=== PATIENT | male | born 1945 | race Caucasian/White ===

== ENCOUNTER 2019-09-03 13:53 | Emergency (ER) | payer OTHER, MEDICAID ==
[~2019-09-03] VITALS: Ht 188 cm; Wt 74.8 kg
[2019-09-03 14:00] VITALS: BP_SYST 110
[2019-09-03] MEDS ORDERED: NACL 0.9% 1,000 ML IV ONE (14:11)
[2019-09-03] MEDS ORDERED: ONDANSETRON HCL 4 MG/2 ML VIAL IVP ONE (14:15)
[2019-09-03] MEDS ORDERED: MORPHINE 4 MG/ML INJ. SYRINGE IVP ONE (14:15)
[2019-09-03] MEDS ORDERED: DILTIAZEM HCL 120 MG CAP.SR.24H PO ONE (14:45)
[2019-09-03 15:38] LABS: ANION GAP 10 (5-15); CHLORIDE 93 mmol/L (98-107); CREATININE 1.31 mg/dL (0.55-1.30); GLUCOSE 108 mg/dL (70-99); POTASSIUM 3.3 mmol/L (3.5-5.1); SODIUM SERUM 128 mmol/L (136-145); UREA NITROGEN, BLOOD 17 mg/dL (8-21)
[2019-09-03 15:40] LABS: INR 1.2 (0.80-1.20); PROTHROMBIN TIME 11.8 SECS (9.5-12.5)
[2019-09-03 15:42] LABS: ALANINE AMINOTRANSFERASE 20 U/L (12-78); ALBUMIN 3.7 g/dL (3.4-4.8); AMYLASE 30 U/L (0-100); ASPARTATE AMINOTRANSFERASE 23 U/L (10-37); LIPASE 125 U/L (73-393); TOTAL BILIRUBIN 0.7 mg/dL (0.0-1.0)
[2019-09-03 16:05] LABS: BASOPHILS # (AUTO) 0.1 K/uL (0.0-0.2); BASOPHILS % (AUTO) 0.7 % (0.0-2.0); EOSINOPHILS # (AUTO) 0.1 K/uL (0.0-0.4); EOSINOPHILS % (AUTO) 1.3 % (0.0-4.0); HEMATOCRIT 40.9 % (36-54); HEMOGLOBIN 13.7 g/dL (14.0-18.0); LYMPHOCYTES # (AUTO) 1.5 K/uL (1.0-5.5); LYMPHOCYTES % (AUTO) 21.1 % (20.5-51.5); MEAN CORPUSCULAR HEMOGLOBIN 34 pg (27-31); MEAN CORPUSCULAR HGB CONC 33 % (32-36); MEAN CORPUSCULAR VOLUME 100 fL (79.0-98.0); MONOCYTES # (AUTO) 0.9 K/uL (0.0-1.0); MONOCYTES % (AUTO) 12.4 % (1.7-9.3); NEUTROPHILS # (AUTO) 4.6 K/uL (1.8-7.7); NEUTROPHILS % (AUTO) 64.5 % (40.0-70.0); PLATELET COUNT (AUTO) 208 K/uL (130-430); RED BLOOD CELL COUNT(AUTO) 4.08 MIL/uL (4.2-6.2); RED CELL DISTRIBUTION WIDTH 15.1 % (9.0-15.0); WHITE BLOOD COUNT (AUTO) 7.2 K/uL (4.8-10.8)
[2019-09-03 16:14] LABS: BLOOD, URINE 3+ (NEGATIVE); COLOR,URINE YELLOW (YELLOW); GLUCOSE,URINE NEGATIVE (NEGATIVE); KETONES,URINE NEGATIVE (NEGATIVE); LEUKOCYTE ESTERASE ,URINE 3+ (NEGATIVE); NITRITE, URINE NEGATIVE (NEGATIVE); PROTEIN URINE 2+ (NEGATIVE)
[2019-09-03 16:23] LABS: BILIRUBIN,URINE NEGATIVE (NEGATIVE); CLARITY/URINE HAZY (CLEAR)
[2019-09-03 16:24] LABS: BACTERIA,URINE MODERATE /HPF (None Seen); MUCUS,URINE None Seen /LPF (None Seen); RBC,URINE 80-100 /HPF (0-3); WBC,URINE 50-80 /HPF (0-3)
[2019-09-03] MEDS ORDERED: LEVOFLOXACIN 500 MG/D5W 100 ML IV ONE (18:00)
[2019-09-03 22:40] VITALS: BP_SYST 129
[2019-09-03] MEDS ORDERED: POTASSIUM CHLORIDE 20 MEQ TAB.PRT.SR PO ONE (23:00)
== END 2019-09-03 22:40 | disposition home or self-care (01) ==
LOC: SED 13:53
DX: N30.91 Cystitis, unspecified with hematuria (principal); Z88.0 Allergy status to penicillin
CPT/HCPCS: 36415; 71045; 71047; 80053; 81000; 82150; 82550; 83605; 83690; 84484; 85025; 85610; 85730; 87040; 87086; 93005; 96365; 96375; 99285; J1956; J2270; J2405; J7030

== ENCOUNTER 2019-09-24 19:28 | Inpatient (IN) | payer OTHER, MEDICAID ==
[~2019-09-24] VITALS: Ht 188 cm; Wt 74.4 kg
[2019-09-24 19:38] VITALS: BP_SYST 121
--- NOTE | 2019-09-24 19:38 | NUR ---
Patient to ER bed 6 to gown for evaluation. Side rails up.
--- NOTE | 2019-09-24 19:46 | NUR ---
ER Dr. Arreola at bedside examining patient.
--- NOTE | 2019-09-24 19:53 | NUR ---
Patient BIB BLS for medical clearance prior to transfer to [facility] room 55B. Patient was wandering and trying to leave facility.
--- NOTE | 2019-09-24 20:40 | NUR ---
# 16 FR In and Out catheter with use of sterile technique. Immediate return of 300ml clear yellow urine noted. Urine sample collected and sent to lab. Pt tolerated procedure well
[2019-09-24 20:55] LABS: BILIRUBIN,URINE NEGATIVE (NEGATIVE); BLOOD, URINE NEGATIVE (NEGATIVE); CLARITY/URINE SL CLOUDY (CLEAR); COLOR,URINE YELLOW (YELLOW); GLUCOSE,URINE NEGATIVE (NEGATIVE); KETONES,URINE NEGATIVE (NEGATIVE); LEUKOCYTE ESTERASE ,URINE 2+ (NEGATIVE); NITRITE, URINE NEGATIVE (NEGATIVE); PROTEIN URINE NEGATIVE (NEGATIVE); UROBILINOGEN,URINE 0.2 (0.2-1.0)
[2019-09-24 20:56] LABS: BASOPHILS % (AUTO) 0.9 % (0.0-2.0); EOSINOPHILS # (AUTO) 0.1 K/uL (0.0-0.4); EOSINOPHILS % (AUTO) 2.6 % (0.0-4.0); HEMATOCRIT 33.3 % (36-54); HEMOGLOBIN 11.3 g/dL (14.0-18.0); LYMPHOCYTES # (AUTO) 1.4 K/uL (1.0-5.5); LYMPHOCYTES % (AUTO) 27.7 % (20.5-51.5); MEAN CORPUSCULAR HEMOGLOBIN 34 pg (27-31); MEAN CORPUSCULAR HGB CONC 34 % (32-36); MEAN CORPUSCULAR VOLUME 100 fL (79.0-98.0); MONOCYTES # (AUTO) 0.3 K/uL (0.0-1.0); NEUTROPHILS % (AUTO) 61.8 % (40.0-70.0); PLATELET COUNT (AUTO) 160 K/uL (130-430); RED BLOOD CELL COUNT(AUTO) 3.34 MIL/uL (4.2-6.2); RED CELL DISTRIBUTION WIDTH 14.5 % (9.0-15.0); WHITE BLOOD COUNT (AUTO) 4.9 K/uL (4.8-10.8)
[2019-09-24 20:59] LABS: BACTERIA,URINE MODERATE /HPF (None Seen); RBC,URINE 0-3 /HPF (0-3)
[2019-09-24 21:04] LABS: BARBITURATE, URINE NEGATIVE (NEG <=200); BENZODIAZEPINE, URINE NEGATIVE (NEG <=150); CANNABINOID, URINE NEGATIVE (NEG <=50); COCAINE, URINE NEGATIVE (NEG <=150); METHAMPHETAMINES SCREEN,URINE NEGATIVE (NEG <=500); OPIATE, URINE NEGATIVE (NEG <=100); PHENCYCLIDINE SCREEN,URINE NEGATIVE (NEG <=25); UR TRICYCLIC ANTIDEPRESSANTS POSITIVE (NEG <=300); URINE AMPHETAMINE NEGATIVE (NEG <=500); URINE METHADONE NEGATIVE (NEG <=200); URINE OXYCODONE SCREEN NEGATIVE (NEG <=100); URINE PROPOXYPHENE SCREEN NEGATIVE (NEG <=300)
[2019-09-24 21:10] LABS: ANION GAP 6 (5-15); CALCIUM 7.7 mg/dL (8.4-11.0); CHLORIDE 93 mmol/L (98-107); CREATININE 0.84 mg/dL (0.55-1.30); GLUCOSE 72 mg/dL (70-99); POTASSIUM 4.1 mmol/L (3.5-5.1); SODIUM SERUM 126 mmol/L (136-145); UREA NITROGEN, BLOOD 12 mg/dL (8-21)
[2019-09-24 21:11] LABS: INR 1.1 (0.80-1.20); PROTHROMBIN TIME 11.5 SECS (9.5-12.5)
[2019-09-24 21:16] LABS: ALANINE AMINOTRANSFERASE 27 U/L (12-78); ALBUMIN 2.8 g/dL (3.4-4.8); ASPARTATE AMINOTRANSFERASE 22 U/L (10-37); CHOLESTEROL 110 mg/dL (<200); HDL CHOLESTEROL 57 mg/dL (>45); LDL CHOLESTEROL 54 mg/dL (<100); TOTAL BILIRUBIN 0.4 mg/dL (0.0-1.0); TRIGLYCERIDES 26 mg/dL (30-150)
[2019-09-24 21:21] LABS: ACETAMINOPHEN < 1 ug/mL (1-30); ALCOHOL, BLOOD < 3 mg/dL (<10)
--- NOTE | 2019-09-24 21:37 | NUR ---
Arrived with POLST Patient's code status is full code paperwork completed and placed in chart.
[2019-09-24] MEDS ORDERED: ACET-73 PO (21:59)
[2019-09-24] MEDS ORDERED: NACL 0.9% 1,000 ML IV ONE (22:00)
[2019-09-24] MEDS ORDERED: ACET325C6 PO (22:11)
[2019-09-24] MEDS ORDERED: DOCU-144 PO ×2 (22:11)
[2019-09-24] MEDS ORDERED: FOLI-43 PO (22:11)
[2019-09-24] MEDS ORDERED: MOM PO (22:11)
[2019-09-24] MEDS ORDERED: FOLI100T PO (22:11)
[2019-09-24] MEDS ORDERED: MYL80 PO (22:11)
[2019-09-24] MEDS ORDERED: BISA-79 RC (22:11)
[2019-09-24] MEDS ORDERED: PRED5TAB PO (22:11)
[2019-09-24] MEDS ORDERED: METH2.5T PO (22:11)
[2019-09-24] MEDS ORDERED: SENN8.6T19 PO (22:11)
[2019-09-24] MEDS ORDERED: METO-442 PO (22:11)
[2019-09-24] MEDS ORDERED: QUET50TA PO (22:11)
[2019-09-24] MEDS ORDERED: APIX5TAB PO (22:11)
[2019-09-24] MEDS ORDERED: TRAZ-250 PO (22:11)
--- NOTE | 2019-09-24 22:12 | NUR ---
Medication reconciliation completed with information provided by Jammie Dye. Any prior medication reconciliation on file was reviewed and corrected.
[2019-09-24] MEDS ORDERED: MORPHINE 2 MG/ML INJ. SYRINGE IVP ONE (22:15)
--- NOTE | 2019-09-24 22:45 | NUR ---
# 22 gauge angiocath placed to LEFT BACK ARM. Use of asceptic technique. Opsite placed over site. Blood return noted. Flushed with 10 cc of normal saline. No evidence of infiltration noted. Patient tolerated well.
--- NOTE | 2019-09-24 23:05 | NUR ---
PATIENT TOLERATED MEDICATIONS WELL.
[2019-09-24] MEDS ORDERED: cefTRIAXone 1 GM IVPB PREMIX 50 ML IV ONE (23:15)
[2019-09-24] MEDS ORDERED: KCL 20 mEq in D5NS 1000 mL 1,000 ML IV ONE (23:30)
--- NOTE | 2019-09-25 00:41 | NUR ---
Patient will be admitted to care of DR. ANAND. Admitted to TELE unit. Will go to room 132C. Belongings list completed. Complete and up to date summary report printed. SBAR report to be given at bedside with opportunity for questions.
--- NOTE | 2019-09-25 00:42 | NUR ---
Transfer to TELE via ACLS protocol. Licensed nurse present. IV present no signs or symptoms of infiltration.
[2019-09-25 01:29] VITALS: BP_SYST 123
--- NOTE | 2019-09-25 01:42 | NUR ---
Patient admitted to 132 c. No acute distress noted. Skin warm dry. Patient complained of pain. Awaiting orders from the Dr. Will continue to monitor.
[2019-09-25] MEDS ORDERED: KCL 20 mEq in D5NS 1000 mL 1,000 ML IV ONE (02:53)
[2019-09-25] MEDS: ACETAMINOPHEN 325 MG TABLET PO PRN ×2 (03:52→09:08)
[2019-09-25] MEDS ORDERED: ACETAMINOPHEN 325 MG TABLET ONE (04:04)
[2019-09-25 07:03] LABS: BASOPHILS % (AUTO) 0.6 % (0.0-2.0); EOSINOPHILS # (AUTO) 0.2 K/uL (0.0-0.4); EOSINOPHILS % (AUTO) 4.1 % (0.0-4.0); HEMATOCRIT 37.5 % (36-54); HEMOGLOBIN 12.4 g/dL (14.0-18.0); LYMPHOCYTES # (AUTO) 1.4 K/uL (1.0-5.5); LYMPHOCYTES % (AUTO) 27.4 % (20.5-51.5); MEAN CORPUSCULAR HEMOGLOBIN 33 pg (27-31); MEAN CORPUSCULAR HGB CONC 33 % (32-36); MEAN CORPUSCULAR VOLUME 100 fL (79.0-98.0); MONOCYTES # (AUTO) 0.4 K/uL (0.0-1.0); MONOCYTES % (AUTO) 7.3 % (1.7-9.3); NEUTROPHILS # (AUTO) 3.1 K/uL (1.8-7.7); NEUTROPHILS % (AUTO) 60.6 % (40.0-70.0); PLATELET COUNT (AUTO) 165 K/uL (130-430); RED BLOOD CELL COUNT(AUTO) 3.74 MIL/uL (4.2-6.2); RED CELL DISTRIBUTION WIDTH 14.9 % (9.0-15.0); WHITE BLOOD COUNT (AUTO) 5.1 K/uL (4.8-10.8)
--- NOTE | 2019-09-25 07:20 | NUR ---
OPENING NOTE Patient resting in the bed. No acute distress. No acute distress. Skin warm and dry to touch. IV intact to LFA, no redness, no swelling, no drainage. On D5 NS with KCl 20mEq at 75ml/hr, infusing well. Discussed the safety issue, use call light when needs help, and plan of care, verbally understanding. Safety measure maintained. Call light within reached. Bed locked in low position, side rails up, bed alarm on. Will continue to monitor.
[2019-09-25 07:50] VITALS: BP_SYST 128
[2019-09-25 08:01] LABS: ALANINE AMINOTRANSFERASE 24 U/L (12-78); ALBUMIN 2.7 g/dL (3.4-4.8); ANION GAP 7 (5-15); ASPARTATE AMINOTRANSFERASE 21 U/L (10-37); CALCIUM 7.9 mg/dL (8.4-11.0); CHLORIDE 99 mmol/L (98-107); CREATININE 0.74 mg/dL (0.55-1.30); GLUCOSE 83 mg/dL (70-99); POTASSIUM 3.7 mmol/L (3.5-5.1); SODIUM SERUM 133 mmol/L (136-145); TOTAL BILIRUBIN 0.5 mg/dL (0.0-1.0); UREA NITROGEN, BLOOD 10 mg/dL (8-21)
[2019-09-25] MEDS ORDERED: cefTRIAXone 1 GM in D5W 50 ML IV SCH (09:00)
--- NOTE | 2019-09-25 09:09 | NUR ---
TYLENOL GIVEN Patient c/o back pain 08/30. Tylenol 650mg PO given as ordered. No acute distress. Rocephin hang. Safety measure maintained. Call light within reached. Bed locked in low position, side rails up, bed alarm on. Continue to monitor.
--- NOTE | 2019-09-25 10:49 | NUR ---
Nutrition Update Cyril Scale 14 noted. Pt admitted for hyponatremia, UTI. Diet: mechanical soft BMI: 21.1 kg/m2 RD to follow per nutrition care standards.
--- NOTE | 2019-09-25 11:46 | NUR ---
ROUND Patient resting in the bed and watching TV. No acute distress. IV intact, IVF infusing well. Safety measure maintained. Bed locked in low position, side rails up, bed alarm on. Continue to monitor.
--- NOTE | 2019-09-25 12:30 | NUR ---
SEEN AND EXAMINED BY DR. GARCIAS, SAID WITH ORDER RECEIVED.
[2019-09-25 12:50] VITALS: BP_SYST 110
--- NOTE | 2019-09-25 14:55 | NUR ---
ROUND Patient resting in the bed. No acute distress. IV intact, IVF infusing well. Safety measure maintained. Call light within reached. Bed locked in low position, side rails up, bed alarm on. Continue to monitor.
--- NOTE | 2019-09-25 16:25 | NUR ---
ROUND Patient resting in the bed and watching TV. No acute distress. IV intact, IVF infusing well. Safety measure maintained. Bed locked in low position, side rails up, bed alarm on. Call light within reached. Continue to monitor.
[2019-09-25 16:54] VITALS: BP_SYST 113
[2019-09-25] MEDS ORDERED: MILK OF MAGNESIA 30 ML UDC PO PRN (17:15)
[2019-09-25] MEDS ORDERED: SIMETHICONE 80 MG TAB.CHEW PO PRN (17:15)
[2019-09-25] MEDS: KCL 20 mEq in D5NS 1000 mL 1,000 ML IV SCH (17:43)
--- NOTE | 2019-09-25 17:46 | NUR ---
SEEN AND EXAMINED BY CECE ZACARIAS WITH ORDER RECEIVED.
[2019-09-25] MEDS: BISACODYL 5 MG TABLET.DR (DULCOLAX) PO PRN (18:41)
[2019-09-25] MEDS: traMADol HCL HCL 50 MG TABLET (ULTRAM) PO PRN (18:46)
--- NOTE | 2019-09-25 18:50 | NUR ---
CLOSING NOTE Patient resting in the bed. No acute distress. No acute distress. PRN pain med given as needed. Skin warm and dry to touch. IV intact to LFA, no redness, no swelling, no drainage. On D5 NS with KCl 20mEq at 75ml/hr, infusing well. All needs met. Safety measure maintained. Call light within reached. Bed locked in low position, side rails up, bed alarm on. Will endorse to night nurse.
--- NOTE | 2019-09-25 19:25 | NUR ---
CHANGE OF SHIFT; pt. awake, on high fowlers position, telling me he want castelan catheter inserted since he is not voiding but informed him he voids since he gets wet with urine, still insisting and to call his urologist., explained to him that MD smith not want it reinserted. keeps pushing call light every so often.
[2019-09-25 20:15] VITALS: BP_SYST 143
--- NOTE | 2019-09-25 20:15 | NUR ---
NOTES: VS checked. again he keeps insisting castelan catheter. IVF on left forearm with NS with 20 meq KCL @ 75 cc/hr via left forearm. on sock knitting machine operator and shows atrial fib. denies any pain at this time. on fall risk precaution. call light within reach. pt. room close to nurses station. on room air.
[2019-09-25] MEDS ORDERED: QUEtiapine FUMARATE 25 MG TABLET PO SCH (21:00)
[2019-09-25] MEDS ORDERED: traZODone HCL 50 MG TABLET (DESYREL) PO SCH ×2 (21:00)
[2019-09-25] MEDS: QUEtiapine FUMARATE 25 MG TABLET PO SCH ×3 (21:00→21:17)
[2019-09-25] MEDS: METOPROLOL TARTRATE 50 MG TABLET PO SCH (21:05)
[2019-09-25] MEDS: DOCUSATE SODIUM 100 MG CAPSULE PO SCH (21:06)
[2019-09-25] MEDS: APIXABAN 2.5 MG TABLET PO SCH (21:09)
--- NOTE | 2019-09-25 21:30 | NUR ---
NOTES: due po medications taken well but questioning his trazadone. still frequently telling me he needs castelan cath.
--- NOTE | 2019-09-25 23:00 | NUR ---
NOTES: pt. able to dose off and on. condition guarded.
--- NOTE | 2019-09-26 00:58 | NUR ---
NOTES: incontinent of urine and stool, kept clean and dry by REFUSE COLLECTOR. repositioned, able to help turn to side.
[2019-09-26 01:08] VITALS: BP_SYST 122
--- NOTE | 2019-09-26 02:00 | NUR ---
NOTES: pt. sleeping when checked. condition observed.
--- NOTE | 2019-09-26 04:20 | NUR ---
NOTES: pt. been sleeping. condition unchanged. continue to monitor.
--- NOTE | 2019-09-26 04:50 | NUR ---
NOTES: pt. woke and called saying he is wet. asked HEAD ROSE GROWER to check on pt. for rich care.
[2019-09-26] MEDS: traMADol HCL HCL 50 MG TABLET (ULTRAM) PO PRN ×2 (05:18→21:27)
--- NOTE | 2019-09-26 05:20 | NUR ---
NOTES: pt. called and medicated for pain due to his arthritis. repositioned.
--- NOTE | 2019-09-26 05:48 | NUR ---
NOTES: pt. incontinent of urine, kept warm and dry. needs attended. call light within reach.
[2019-09-26] MEDS: KCL 20 mEq in D5NS 1000 mL 1,000 ML IV SCH ×2 (06:16→21:17)
[2019-09-26 06:30] LABS: BASOPHILS # (AUTO) 0.1 K/uL (0.0-0.2); EOSINOPHILS # (AUTO) 0.2 K/uL (0.0-0.4); EOSINOPHILS % (AUTO) 4.3 % (0.0-4.0); HEMATOCRIT 35.8 % (36-54); HEMOGLOBIN 11.9 g/dL (14.0-18.0); LYMPHOCYTES # (AUTO) 1.3 K/uL (1.0-5.5); LYMPHOCYTES % (AUTO) 26.4 % (20.5-51.5); MEAN CORPUSCULAR HEMOGLOBIN 34 pg (27-31); MEAN CORPUSCULAR HGB CONC 33 % (32-36); MEAN CORPUSCULAR VOLUME 100 fL (79.0-98.0); MONOCYTES # (AUTO) 0.3 K/uL (0.0-1.0); MONOCYTES % (AUTO) 6.3 % (1.7-9.3); NEUTROPHILS # (AUTO) 3.1 K/uL (1.8-7.7); PLATELET COUNT (AUTO) 191 K/uL (130-430); RED BLOOD CELL COUNT(AUTO) 3.57 MIL/uL (4.2-6.2); RED CELL DISTRIBUTION WIDTH 14.8 % (9.0-15.0)
--- NOTE | 2019-09-26 06:45 | NUR ---
CLOSING NOTES; pt. sleeping when checked. no acute distress. for further care and assistance. call light within reach.
[2019-09-26 06:51] LABS: ANION GAP 9 (5-15); CALCIUM 8.2 mg/dL (8.4-11.0); CHLORIDE 101 mmol/L (98-107); CREATININE 0.78 mg/dL (0.55-1.30); GLUCOSE 82 mg/dL (70-99); POTASSIUM 4.3 mmol/L (3.5-5.1); SODIUM SERUM 133 mmol/L (136-145); UREA NITROGEN, BLOOD 9 mg/dL (8-21)
[2019-09-26 07:42] VITALS: BP_SYST 144
--- NOTE | 2019-09-26 07:50 | NUR ---
INITIAL NOTE RECEIVED PT IN BED, NO S/S OF DISTRESS OR SOB NOTED, PT HAS NO C/O PAIN AT THIS TIME, PT IN STABLE CONDITION, PT AAOX3, VERBAL, FORGETFUL AT TIMES, PROVIDE PT WITH REALITY ORIENTATION. PT HAS AN IV CATHETER, PATENT, NO SIGNS OF INFECTION OR INFILTRATION NOTED, RUNNING IV FLUIDS ORDERED. BED AT LOWEST POSITION, CALL LIGHT WITHIN REACH, WILL CONTINUE TO MONITOR PT FOR ANY CHANGES, FALL AND SAFETY PRECAUTIONS IN PLACE.
[2019-09-26] MEDS: DOCUSATE SODIUM 100 MG CAPSULE PO SCH ×2 (08:25→21:08)
[2019-09-26] MEDS: FOLIC ACID 1 MG TABLET PO SCH (08:26)
[2019-09-26] MEDS: SENNOSIDES 8.6 MG TABLET PO SCH (08:26)
[2019-09-26] MEDS: QUEtiapine FUMARATE 25 MG TABLET PO SCH ×3 (08:26→21:09)
[2019-09-26] MEDS: METOPROLOL TARTRATE 50 MG TABLET PO SCH ×2 (08:26→21:09)
[2019-09-26] MEDS: PREDNISONE 5 MG TABLET PO SCH (08:26)
[2019-09-26] MEDS: MULTIVITS,CA,MINERALS/IRON/FA 1 TABLET PO SCH (08:26)
[2019-09-26] MEDS: ACETAMINOPHEN 325 MG TABLET PO PRN (08:27)
[2019-09-26] MEDS: APIXABAN 2.5 MG TABLET PO SCH ×2 (08:28→21:13)
[2019-09-26] MEDS: CEFTRIAXONE SOD 1 GM/ D5W 50 ML IV SCH ×2 (08:36)
--- NOTE | 2019-09-26 10:41 | NUR ---
ROUNDS PT IN BED, NO S/S OF DISTRESS OR SOB NOTED, PT HAS NO C/O PAIN AT THIS TIME, PT IN STABLE CONDITION, PT WATCHING TV, WILL CONTINUE TO MONITOR PT FOR ANY CHANGES.
[2019-09-26 12:32] VITALS: BP_SYST 123
--- NOTE | 2019-09-26 14:20 | NUR ---
ROUNDS PT IN BED, NO S/S OF DISTRESS OR SOB NOTED, PT HAS NO C/O PAIN AT THIS TIME, PT IN STABLE CONDITION, PT TALKING ON THE PHONE, WILL CONTINUE TO MONITOR PT FOR ANY CHANGES.
[2019-09-26 16:45] VITALS: BP_SYST 116
--- NOTE | 2019-09-26 18:39 | NUR ---
CLOSING NOTE PT IN BED, NO S/S OF DISTRESS OR SOB NOTED, PT HAS NO C/O PAIN AT THIS TIME, PT IN STABLE CONDITION, PT AAOX3, VERBAL, FORGETFUL AT TIMES, PROVIDE PT WITH REALITY ORIENTATION. PT HAS AN IV CATHETER, PATENT, NO SIGNS OF INFECTION OR INFILTRATION NOTED, RUNNING IV FLUIDS ORDERED. BED AT LOWEST POSITION, CALL LIGHT WITHIN REACH, WILL ENDORSE CARE OF PT TO INCOMING NURSE, FALL AND SAFETY PRECAUTIONS IN PLACE.
--- NOTE | 2019-09-26 18:51 | NUR ---
MD ROUNDS DR ANAND ROUNDING, AWARE OF PATIENT'S CONDITION, NEW ORDERS GIVEN.
[2019-09-26] MEDS ORDERED: traZODone HCL 50 MG TABLET (DESYREL) PO PRN (19:00)
--- NOTE | 2019-09-26 19:15 | NUR ---
CHANGE OF SHIFT; pt. awake, alert, watching tv when received, no acute distress. IVF infusing. on fall risk precautions. call light within reach. pt. room lose to nurses station.
--- NOTE | 2019-09-26 20:30 | NUR ---
NOTES: pt. remains awake, telling me he wrote a love story notes. pt. alert and oriented. VS checked. maintain bed rest. pt. using urinal and sometimes gets incontinent. IV infusing continuously via left forearm . moves upper extremities well. on ekg monitor tech and shows atrial fib, controlled rate. on high fowlers position. on fall risk precautions. bed in low position, bed alarm on.
[2019-09-26 20:45] VITALS: BP_SYST 143
[2019-09-26] MEDS: CLOTRIMAZOLE 1% TOPICAL CREAM 15 GM TP SCH (21:00)
--- NOTE | 2019-09-26 21:30 | NUR ---
NOTES: due medications given including sleep and pain medication. pt. needs attended. rich care by ENGLISH LANGUAGE LEARNER TUTOR, noted scrotum reddened/groin area with rash cream order not available. toes on both feet with dry scabs. pt. kept warm with blanket.
--- NOTE | 2019-09-26 23:00 | NUR ---
NOTES: pt. sleeping when checked. continue to monitor.
[2019-09-27 00:05] VITALS: BP_SYST 142
--- NOTE | 2019-09-27 01:40 | NUR ---
NOTES: pt. c/o being cold in his room. called security to adjust temp. pt. could not go back to sleep, been complaining about his medication. pt. gown wet, kept warm, more blanket given. repositioned himself.
--- NOTE | 2019-09-27 03:25 | NUR ---
NOTES: pt. checked his leads, still pretty awake. wants Morphine for his arthritic pain, will give another pain pill as ordered.
--- NOTE | 2019-09-27 04:15 | NUR ---
NOTES: pt. sleeping when checked, pain pill not given. condition observed.
--- NOTE | 2019-09-27 05:45 | NUR ---
NOTES: pt. awakened, pt. wet the bed with urine, kept dry and went back to sleep.
--- NOTE | 2019-09-27 06:05 | NUR ---
NOTES: Dr. Nieto here, checked pt. but did not wake up, told him pt. issue on Seroquel that he gets a higher dose, MD will check.
--- NOTE | 2019-09-27 06:45 | NUR ---
CLOSING NOTES; pt. remain sleeping. for further care and assistance. IVF continuous. fall risk. call light within reach. bed alarm on, side rails up.
[2019-09-27 08:00] VITALS: BP_SYST 156
[2019-09-27] MEDS: QUEtiapine FUMARATE 25 MG TABLET PO SCH ×2 (09:16→21:05)
[2019-09-27] MEDS: FOLIC ACID 1 MG TABLET PO SCH (09:17)
[2019-09-27] MEDS: MULTIVITS,CA,MINERALS/IRON/FA 1 TABLET PO SCH (09:17)
[2019-09-27] MEDS: SENNOSIDES 8.6 MG TABLET PO SCH (09:17)
[2019-09-27] MEDS: DOCUSATE SODIUM 100 MG CAPSULE PO SCH ×2 (09:18→21:05)
[2019-09-27] MEDS: CEFTRIAXONE SOD 1 GM/ D5W 50 ML IV SCH ×2 (09:18)
[2019-09-27] MEDS: METOPROLOL TARTRATE 50 MG TABLET PO SCH ×2 (09:18→21:05)
[2019-09-27] MEDS: KCL 20 mEq in D5NS 1000 mL 1,000 ML IV SCH ×2 (09:18→22:25)
[2019-09-27] MEDS: PREDNISONE 5 MG TABLET PO SCH (09:19)
[2019-09-27] MEDS: APIXABAN 2.5 MG TABLET PO SCH ×2 (09:22→21:16)
[2019-09-27] MEDS: ACETAMINOPHEN 325 MG TABLET PO PRN ×2 (10:53→17:09)
[2019-09-27] MEDS: CLOTRIMAZOLE 1% TOPICAL CREAM 15 GM TP SCH ×2 (10:55→21:00)
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
--- NOTE | 2019-09-27 11:45 | NUR ---
Dietitian Recommendations *Recommend adding Ensure Enlive TID. ONS will provide additional 1050 kcal and 60gm protein daily. *Continue Mechanical soft diet per MD. *Continue MVI. Please see Nutritional Assessment for details. RICKY TABARES
[2019-09-27 12:22] VITALS: BP_SYST 115
[2019-09-27] MEDS: traMADol HCL HCL 50 MG TABLET (ULTRAM) PO PRN (13:44)
[2019-09-27] MEDS: BISACODYL 5 MG TABLET.DR (DULCOLAX) PO PRN (13:45)
[2019-09-27 16:23] VITALS: BP_SYST 121
--- NOTE | 2019-09-27 19:04 | NUR ---
Handoff with night team registered nurse. Shahzad Montgomery RN
--- NOTE | 2019-09-27 19:30 | NUR ---
OPENING NOTES RECEIVED SBAR REPORT. PT RESTING IN BED. NO SIGNS AND SYMPTOMS OF ACUTE DISTRESS NOTED AT THIS TIME. BREATHING IS EVEN AND UNLABORED TO ROOM AIR. IV SITE PATENT, NO SIGNS OF INFILTRATION NOTED. IVF RUNNING ORDERED RATE. CLOSE TO NURSING STATION. LOCKED BED IN LOWEST POSITION. FALL AND SAFETY PRECAUTIONS MAINTAINED. WILL CONTINUE TO MONITOR.
[2019-09-27 20:00] VITALS: BP_SYST 160
[2019-09-27] MEDS ORDERED: QUEtiapine FUMARATE 25 MG TABLET PO SCH (21:00)
[2019-09-27] MEDS ORDERED: traZODone HCL 50 MG TABLET (DESYREL) PO SCH (21:00)
--- NOTE | 2019-09-27 21:16 | NUR ---
MEDICATION PASS SCHEDULED MEDICATIONS PASS. CRUSHED WITH APPLESAUCE. PT TOLERATING WELL. DISCUSSED MEDICATION ACTIONS AND POTENTIAL SIDE EFFECTS. PT APPEARS TO HAVE POOR CONCENTRATION. CALL LIGHT WITHIN REACH. SAFETY AND FALL PRECAUTIONS IN PLACE. WILL MONITOR.
--- NOTE | 2019-09-27 22:25 | NUR ---
IVF BAG CHANGE NEW BAG OF IVF HUNG. REGULATED TO INFUSE AT ORDERED RATE. NO S/S INFILTRATION AT IV SITE. PT RESTING IN BED. SLEEPING. SAFETY AND FALL PRECAUTIONS IN PLACE. WILL MONITOR.
--- NOTE | 2019-09-28 | NUR ---
SLEEPING PT RESTING IN BED. NO SIGNS AND SYMPTOMS OF ACUTE DISTRESS NOTED AT THIS TIME. BREATHING IS EVEN AND UNLABORED TO ROOM AIR. IV SITE PATENT, NO SIGNS OF INFILTRATION NOTED. IVF RUNNING ORDERED RATE. CLOSE TO NURSING STATION. LOCKED BED IN LOWEST POSITION. FALL AND SAFETY PRECAUTIONS MAINTAINED. WILL CONTINUE TO MONITOR.
[2019-09-28] MEDS: traMADol HCL HCL 50 MG TABLET (ULTRAM) PO PRN ×3 (02:23→13:43)
--- NOTE | 2019-09-28 02:23 | NUR ---
PAIN MEDICATION PT REPORTING MODERATE GENERALIZED PAIN. ADMINISTERED ULTRAM MEDICATION. DISCUSSED MEDICATION ACTIONS AND POTENTIAL SIDE EFFECTS. CALL LIGHT WITHIN REACH. SAFETY AND FALL PRECAUTIONS IN PLACE. WILL REASSESS PAIN WITHIN HOUR. WILL MONITOR.
--- NOTE | 2019-09-28 04:20 | NUR ---
RN ROUNDS PT RESTING IN BED. NO SIGNS AND SYMPTOMS OF ACUTE DISTRESS NOTED AT THIS TIME. BREATHING IS EVEN AND UNLABORED TO ROOM AIR. IVF RUNNING ORDERED RATE. CLOSE TO NURSING STATION. LOCKED BED IN LOWEST POSITION. FALL AND SAFETY PRECAUTIONS MAINTAINED. WILL CONTINUE TO MONITOR.
--- NOTE | 2019-09-28 05:55 | NUR ---
DR.JACOB TORO ROUNDS, AT PT BEDSIDE.
--- NOTE | 2019-09-28 06:36 | NUR ---
CLOSING NOTES PT RESTING IN BED. NO SIGNS AND SYMPTOMS OF ACUTE DISTRESS NOTED AT THIS TIME. BREATHING IS EVEN AND UNLABORED TO ROOM AIR. IV SITE PATENT, NO SIGNS OF INFILTRATION NOTED. IVF RUNNING ORDERED RATE. CLOSE TO NURSING STATION. LOCKED BED IN LOWEST POSITION. FALL AND SAFETY PRECAUTIONS MAINTAINED. WILL CONTINUE TO MONITOR UNTIL ENDORSE TO DAY SHIFT.
--- NOTE | 2019-09-28 07:15 | NUR ---
OPENING NOTES PT AWAKE, ALERT, AND ORIENTED X2. RE-ORIENTED PT TO TIME. NONLABORED BREATHING NOTED ON ROOM AIR, O2 AT 96%. PT DENIES PAIN AND DENIES SOB AT THIS TIME. IV LINE INTACT AND PATENT, NO SIGNS OF INFILTRATION NOTED, FLUIDS RUNNING ORDERED PER MD, TOLERATING WELL. PT CLEAN AND DRY. HOB ELEVATED. NO ACUTE DISTRESS NOTED. ALL NEEDS MET. CALL LIGHT IN REACH. FALL AND ASPIRATION PRECAUTIONS IN PLACE. CONTINUE TO MONITOR.
[2019-09-28 08:00] VITALS: BP_SYST 147
[2019-09-28] MEDS: CLOTRIMAZOLE 1% TOPICAL CREAM 15 GM TP SCH ×2 (09:00→09:36)
[2019-09-28] MEDS: FOLIC ACID 1 MG TABLET PO SCH (09:26)
[2019-09-28] MEDS: MULTIVITS,CA,MINERALS/IRON/FA 1 TABLET PO SCH (09:26)
[2019-09-28] MEDS: DOCUSATE SODIUM 100 MG CAPSULE PO SCH (09:26)
[2019-09-28] MEDS: SENNOSIDES 8.6 MG TABLET PO SCH (09:26)
[2019-09-28] MEDS: APIXABAN 2.5 MG TABLET PO SCH (09:29)
[2019-09-28] MEDS: METOPROLOL TARTRATE 50 MG TABLET PO SCH (09:35)
[2019-09-28] MEDS: QUEtiapine FUMARATE 25 MG TABLET PO SCH ×2 (09:35→15:06)
[2019-09-28] MEDS: PREDNISONE 5 MG TABLET PO SCH (09:35)
[2019-09-28] MEDS: CEFTRIAXONE SOD 1 GM/ D5W 50 ML IV SCH ×2 (09:36)
--- NOTE | 2019-09-28 09:40 | NUR ---
ROUTINE MEDS ROUTINE MEDS ADMINISTERED ORDERED PER MD, EDUCATION GIVEN, TOLERATED WELL. NO ACUTE DISTRESS NOTED. ALL NEEDS MET. CALL LIGHT IN REACH. CONTINUE TO MONITOR.
--- NOTE | 2019-09-28 10:45 | NUR ---
C/O GAS PT C/O GAS AND FEELING OF BLOATING. ADMINISTERED PRN SIMETHICONE FOR GAS, EDUCATION GIVEN, TOLERATED WELL. NO ACUTE DISTRESS NOTED. ALL NEEDS MET. CALL LIGHT IN REACH. CONTINUE TO MONITOR.
[2019-09-28] MEDS: KCL 20 mEq in D5NS 1000 mL 1,000 ML IV SCH (11:41)
--- NOTE | 2019-09-28 11:45 | NUR ---
ROUTINE FLUIDS ROUTINE FLUIDS ADMINISTERED ORDERED PER MD, EDUCATION GIVEN, TOLERATED WELL. PT CONFUSED STATING HE WANTED TO GO TO THE HOSPITAL, RE-ORIENTED PT THAT HE WAS IN THE HOSPITAL. NO ACUTE DISTRESS NOTED. ALL NEEDS MET. CALL LIGHT IN REACH. CONTINUE TO MONITOR.
--- NOTE | 2019-09-28 12:21 | NUR ---
Filteration Operator: CENSUS TAKER is to speak to pt at the Vida Chawla's request CENSUS TAKER spoke to Pt. Mr. Lutz who stated he wants to leave AMA. He stated he is not getting pain relief from his arthritis and needs help with his BM. He stated he wants to leave AMA and brought to [facility]. CENSUS TAKER explained to pt. that she suggests waiting to see Dr. Rene today and he should share his complaints with him. Additionally, is Rn stated pt. may be D/C 'd today. Pt. stated he refuses to go to a intermediate. He only wants to go to [facility] as stated earlier with the SR ACCOUNT EXECUTIVECarie. Pt. stated he has a ase master mechanic and he wants to leave AMA. CENSUS TAKER spoke to Vida Chawla to share with her this info. CENSUS TAKER stated pt. is not on restraints, is on a 5150 and is threatening to leave AMA. CENSUS TAKER did not feel she had any success in talking to pt. and discouraging him from leaving AMA. CENSUS TAKER shared with Rn she should share this info with the Artificial Stone Setter., she may need to call security and page Dr. Rene. Cammy thanked CENSUS TAKER who will remain available as needed.
[2019-09-28 12:35] VITALS: BP_SYST 120
--- NOTE | 2019-09-28 12:36 | NUR ---
SPOKE TO PLANNING FEEDER AND CHARGE NURSE, CECE PT ON 5150, FORM SIGNED THIS AM BY DR. GARCIAS. SPOKE TO CHARGE NURSE CECE REGARDING PT'S MEDICATIONS AND STATED THAT MD IS AWARE. PT HAD BOWEL MOVEMENT YESTERDAY AND WAS GIVEN MEDICATIONS FOR CONSTIPATION AND GAS THIS AM. WILL CONTINUE TO MONITOR.
[2019-09-28] MEDS: BISACODYL 5 MG TABLET.DR (DULCOLAX) PO PRN (13:43)
--- NOTE | 2019-09-28 13:45 | NUR ---
PT C/O PAIN AND CONSTIPATION ADMINISTERED PAIN MEDICATIONS PRN ORDERED PER MD AND MEDICATIONS FOR CONSTIPATION ORDERED PER MD, EDUCATION GIVEN, TOLERATED WELL. NO ACUTE DISTRESS NOTED. ALL NEEDS MET. CALL LIGHT IN REACH, CONTINUE TO MONITOR.
--- NOTE | 2019-09-28 14:41 | NUR ---
Social Service Note: MACERATOR OPERATOR received call from pt. Pt is stating that he wants to leave the hospital and go to [facility]; pt states that he has been to [facility] in the past and wants to return. MACERATOR OPERATOR alerted pt that he does not have orders to be discharged from the hospital at this time. Pt states that he wants to leave the hospital today no matter what, pt also stated that he would leave AMA if he has to. MACERATOR OPERATOR allowed pt to voice his concerns. MACERATOR OPERATOR will remain available for support and will follow up as needed.
--- NOTE | 2019-09-28 14:53 | NUR ---
ROUTINE MEDS ROUTINE MEDS ADMINISTERED ORDERED PER MD, EDUCATION GIVEN, TOLERATED WELL. NO ACUTE DISTRESS NOTED. ALL NEEDS MET. CALL LIGHT IN REACH. CONTINUE TO MONITOR.
[2019-09-28 16:00] VITALS: BP_SYST 116
--- NOTE | 2019-09-28 16:45 | NUR ---
CLOSING NOTES PT AWAKE AND ALERT, NONLABORED BREATHING NOTED ON ROOM AIR. IV LINE INTACT AND PATENT, NO SIGNS OF INFILTRATION NOTED. NO ACUTE DISTRESS NOTED. PT CLEAN AND DRY. PT DENIES SOB AT THIS TIME. ALL NEEDS MET. CALL LIGHT IN REACH. FALL AND ASPIRATION PRECAUTIONS IN PLACE. WILL ENDORSE TO NOC NURSE. SEEN BY DR. ANAND AT BEDSIDE.
--- NOTE | 2019-09-28 19:15 | NUR ---
TRANSPORT CARE MARISELA SPOKE WITH YUNIOR GALLEGOS UP 2029 GOING TO [facility] ROOM 55A FOR REPORT
[2019-09-28] MEDS ORDERED: HALOPERIDOL LACTATE 5 MG/ML VIAL IM ONE (19:30)
--- NOTE | 2019-09-28 19:30 | NUR ---
OPENING NOTES RECEIVED CARE OF PT AND SBAR REPORT. PT AWAKE, ALERT, AND ORIENTED X2. RE-ORIENTED PT TO TIME. NONLABORED BREATHING NOTED ON ROOM AIR, O2 AT 96%. PT DENIES PAIN AND DENIES SOB AT THIS TIME. IV LINE INTACT AND PATENT, NO SIGNS OF INFILTRATION NOTED, FLUIDS RUNNING ORDERED PER MD, TOLERATING WELL. PT CLEAN AND DRY. HOB ELEVATED. NO ACUTE DISTRESS NOTED. ALL NEEDS MET. CALL LIGHT IN REACH. FALL AND ASPIRATION PRECAUTIONS IN PLACE. POC DISCUSSED REGARDING PT'S TRANSFER TONIGHT. WILL CONTINUE TO MONITOR.
--- NOTE | 2019-09-28 19:47 | NUR ---
HALDOL HALDOL 5 MG IM ADMINISTERED ORDERED. MEDICATION AND POTENTIAL SIDE EFFECTS EXPLAINED TO PT. PT CONFUSED. PT TOLERATED WELL. NO S/S/ OF ACUTE DISTRESS. SAFETY AND FALL PRECAUTIONS ARE IN PLACE. WILL MONITOR.
[2019-09-28 20:00] VITALS: BP_SYST 134
[2019-09-28 20:28] VITALS: BP_SYST 134
--- NOTE | 2019-09-28 21:00 | NUR ---
TRANSFER PT TRANSFERRED TO [facility] VIA AMBULANCE. ALL BELONGINGS SENT WITH PT. IV TAKEN OUT, NO BLEEDING NOTED, CATHETER TIP INTACT. DISCHARGE PAPERWORK AND INSTRUCTIONS EXPLAINED TO PT, PT CONFUSED. PAPERWORK SENT IN DISCHARGE PACKET WITH PT.
== END 2019-09-28 21:00 | DRG 690 ==
LOC: SED 19:28 → STU 23:25
PROVIDERS: ADMIT Family Medicine; ATTEND Family Medicine
DX: N39.0 Urinary tract infection, site not specified (principal); E44.0 Moderate protein-calorie malnutrition; E87.1 Hypo-osmolality and hyponatremia; F31.63 Bipolar disorder, current episode mixed, severe, without psychotic features; F12.90 Cannabis use, unspecified, uncomplicated; I10 Essential (primary) hypertension; I48.91 Unspecified atrial fibrillation; M06.9 Rheumatoid arthritis, unspecified; N40.1 Benign prostatic hyperplasia with lower urinary tract symptoms; G89.29 Other chronic pain; Z79.899 Other long term (current) drug therapy; Z68.21 Body mass index [BMI] 21.0-21.9, adult; Z88.0 Allergy status to penicillin
CPT/HCPCS: 36415; 71045; 80048; 80053; 80061; 80307; 81000-TC; 83036; 83605; 83735-TC; 85025; 85610-TC; 85730-TC; 87040-TC; 87081; 87086; 87186-TC; 93005; 96365; 96375; 97110-GP; 97530-GP; 99285; G0378; G0480; G0481; G0482; J0696; J1630; J2270; J7030; J7060; J7512